=== PATIENT | female | born 1995 | race Caucasian/White ===

== ENCOUNTER → 2016-07-07 13:28 | Emergency (ER) | payer OTHER ==
[~2016-07-07 13:28] MED LIST: BENADRYL25 M1 PO; CLONIDINE PO; CONCERTA PO; HYDROCORTISONE30 G2 EXT; KLONOPIN1 MG PO; MIRALAX17 G2 PO; NEURONTIN300 MG PO; NO MEDICATIONS; NORFLEX100 M1 PO; VOLTAREN75 MG PO; WELLBUTRIN PO; ZITHROMAX PO
== END | disposition home or self-care (01) ==
LOC: SED 13:28
DX: L73.9 Follicular disorder, unspecified (principal); F32.9 Major depressive disorder, single episode, unspecified; F41.9 Anxiety disorder, unspecified; F17.210 Nicotine dependence, cigarettes, uncomplicated; Z88.0 Allergy status to penicillin; Z79.899 Other long term (current) drug therapy
CPT/HCPCS: 99282

== ENCOUNTER 2016-11-30 13:46 | Emergency (ER) | payer OTHER ==
[2016-11-30 14:57] LABS: BASOPHIL% 0.3 % (0-2.5); EOSINOPHIL# 0.1 X10e3 (0-0.7); EOSINOPHIL% 1.3 % (0.0-7.0); HEMATOCRIT 37.5 % (35.0-45.0); HEMOGLOBIN 12.8 gm/dL (12.0-16.0); LYMPHOCYTE# 1.5 X10e3 (1.0-3.5); MEAN CELL VOLUME 91.4 FL (83-96); MEAN CORPUSCULAR HEMOGLOBIN 31.3 PG (28-34); MEAN CORPUSCULAR HGB CONC 34.2 g/dL (30-36); MEAN PLATELET VOLUME 8.6 FL (6.5-11.5); MONOCYTE# 0.4 X10e3 (0-1.0); MONOCYTE% 6.9 % (3.0-12.0); NEUTROPHIL# 3.7 X10e3 (1.5-7.1); NEUTROPHIL% 65.5 % (40-75); PLATELET COUNT 152 X10e3 (140-420); RED CELL DISTRIBUTION WIDTH 13.6 % (11.0-15.5); WHITE BLOOD COUNT 5.6 X10e3 (4.0-10.5)
[2016-11-30 14:59] LABS: DIFF IND NO
[2016-11-30 15:10] LABS: BUN/CREATININE RATIO 8.88; CALCIUM SERUM 8.7 mg/dL (8.4-10.2); CREATININE SERUM 0.9 mg/dL (0.6-1.4); GLOM FILT RATE Estimated 91.5 mL/min (>60); POTASSIUM 3.3 mmol/L (3.5-5.1)
== END 2016-11-30 15:56 | disposition home or self-care (01) ==
LOC: SED 13:46
PROVIDERS: Nurse Practitioner
DX: N63 Unspecified lump in breast (principal); F17.200 Nicotine dependence, unspecified, uncomplicated; Z88.0 Allergy status to penicillin; Z79.899 Other long term (current) drug therapy
CPT/HCPCS: 36415; 80048; 84703; 85025; 96372; 99283; J1885